=== PATIENT | male | born 1995 | race Caucasian/White ===

== ENCOUNTER 2020-06-18 20:51 | Emergency (ER) | payer SELFPAY ==
[~2020-06-18] VITALS: Ht 167.6 cm; Wt 78.9 kg
[2020-06-18 20:58] VITALS: BP 141/78
--- NOTE | 2020-06-18 21:04 | NUR ---
PT W/C TO BED 11.
--- NOTE | 2020-06-18 21:16 | NUR ---
XRAY AT BEDSIDE.
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
--- NOTE | 2020-06-18 22:53 | NUR ---
MD MONIQUE AT BEDSIDE SPEAKING WITH PATIENT
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
--- NOTE | 2020-06-18 23:56 | NUR ---
pts right foot was placed in a short posterior leg splint. pts pms[facility] wnl. pt was also given crutches. pts showed good use of crutches.
[2020-06-19 00:04] VITALS: BP 138/68
--- NOTE | 2020-06-19 00:04 | NUR ---
Patient discharged with v/s stable. Written and verbal after care instructions given and explained. Patient verbalized understanding. Ambulatory with CRUTCHES. All questions addressed prior to discharge. Advised to follow up with PMD.
== END 2020-06-19 00:04 | disposition home or self-care (01) ==
LOC: MED 20:51
DX: S93.326A Dislocation of tarsometatarsal joint of unspecified foot, initial encounter (principal); M79.671 Pain in right foot; V89.2XXA Person injured in unspecified motor-vehicle accident, traffic, initial encounter; Y93.89 Activity, other specified; Y92.89 Other specified places as the place of occurrence of the external cause; Y99.8 Other external cause status
CPT/HCPCS: 29515; 73610; 73630; 99284